=== PATIENT | female | born 1935 | race Asian ===

== ENCOUNTER 2020-12-29 09:14 | Observation (INO) | payer MEDICARE ==
[~2020-12-29] VITALS: Ht 149.9 cm; Wt 56.6 kg
[2020-12-29 09:50] LABS: BASO % 0.5 % (0.0-2.0); EOS # 0.2 (0.0-0.7); EOS % 2.5 % (0-4.0); GRAN # 6.6 (1.4-6.5); GRAN % 76.2 % (42.2-75.2); LYMPH # 1.2 (1.2-3.4); LYMPH % 13.8 % (20.0-51.0); MEAN CELL VOLUME 94 fl (80.0-100.0); MEAN CORPUSCULAR HGB CONC 31 g/dl (33.0-37.0); MEAN PLATELET VOLUME 10.5 fl (7.4-10.4); MONO # 0.6 (0.1-0.6); MONO % 6.7 % (1.7-9.3); PLATELET COUNT 113 K/mm3 (130-400); RED BLOOD COUNT 3.16 M/mm3 (4.10-5.30); REDCELL DISTRIBUTION WIDTH-CV 13.2 % (11.5-14.5)
[2020-12-29 09:55] LABS: HEMATOCRIT 29.8 % (37.0-47.0); HEMOGLOBIN 9.2 g/dl (12.5-16.0); MEAN CORPUSCULAR HEMOGLOBIN 29 pg (27.0-31.0)
[2020-12-29 10:04] LABS: ALBUMIN 4.1 gm/dL (3.5-5.0); BILIRUBIN,TOTAL 0.9 mg/dL (0.0-1.0); CALCIUM 9.3 mg/dL (8.4-10.2); CREATININE, serum 5.99 (0.52-1.25); POTASSIUM 3.7 mmol/L (3.4-5.0); TOTAL PROTEIN 7.7 gm/dL (6.4-8.2)
[2020-12-29 10:15] LABS: C-REACTIVE PROTEIN 1.2 mg/dL (0.0-0.9); MAGNESIUM 2.1 mg/dL (1.6-2.3); PHOSPHOROUS 3.4 mg/dL (2.5-4.5)
[2020-12-29] MEDS ORDERED: LAC-HYDRIN LOT 225GM TP (10:27)
[2020-12-29] MEDS ORDERED: LIPITOR 40MG TA40 MG PO (10:28)
[2020-12-29] MEDS ORDERED: CALPHRON667 MG PO (10:29)
[2020-12-29] MEDS ORDERED: ARICEPT 5MG PO (10:30)
[2020-12-29] MEDS ORDERED: COREG 3.123.125 MG/T PO (10:30)
[2020-12-29] MEDS ORDERED: LEXAPRO 5MG5 MG PO (10:31)
[2020-12-29] MEDS ORDERED: NAMENDA XR PO (10:32)
[2020-12-29] MEDS ORDERED: LEVOXYL0.05 MG PO (10:32)
[2020-12-29] MEDS ORDERED: VENTOLIN0.09 MG IH (10:33)
[2020-12-29 16:00] VITALS: BP 144/62; PULSE 74; TEMP 98.1
--- NOTE | 2020-12-29 16:30 | NUR ---
PATIENT ADMITED INTO ROOM 346 FROM ER WITH CHRONIC RENAL FAILURE. PATIENT MOVED TO THIS AREA FROM [place] 5 DAYS AGO. PATIENT MOVED IN WITH GRAND-DAUGHTER FOR BETTER CARE. 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 NEPHROLOGY IS CONCERNED ABOUT FISTULA ACCESS, PLAN IS TO TRY AND DO DIALYSIS TOMORROW. NOTED CRITICAL BUN & CREATININE UPON ADMIT TO ER. PATIENT REPORTS LAST DIALYSIS WAS 12/27/20 AND IS ANURIC. PATIENT IS ALSO VERY HYPERTENSIVE AND RECEIVED SEVERAL MEDS FOR B/P IN ER. ALL OTHER VSS. RIGHT AC IV TO INT. RENAL DIET ORDERED. HEAD TO TOE ASSESSMENT COMPLETE. GRAND-DAUGHTER AT BEDSIDE. ORIENTED TO ROOM. CALL LIGHT IN REACH.
[2020-12-29 19:35] VITALS: BP 208/55; PULSE 67; TEMP 98.6
--- NOTE | 2020-12-29 21:00 | NUR ---
PATIENT IS CALM IN BED.DUE MEDS GIVEN.PATIENT HAS DIMINSHED URINE.SAFETY MEASURES PUT IN PLACE.DENIES PAIN.NO OTHER NEEDS AT THIS TIME.
[2020-12-29 23:11] VITALS: BP 207/64; PULSE 69; TEMP 98.7
[2020-12-30] VITALS (11 sets, daily range): BP systolic 135–202; BP diastolic 40–66; PULSE 59–61; TEMP 97.6–98.6
--- NOTE | 2020-12-30 05:50 | NUR ---
PATIENT HAD A CALM NIGHT.PATIENT HAD ELEVATED SYSTOLIC BP.DENIES PAIN. SAFETY MEASURES IN PLACE.NO OTHER NEEDS AT THIS TIME.
[2020-12-30 07:01] LABS: BASO % 0.3 % (0.0-2.0); EOS # 0.2 (0.0-0.7); EOS % 2.8 % (0-4.0); GRAN # 5.7 (1.4-6.5); HEMATOCRIT 25.1 % (37.0-47.0); HEMOGLOBIN 7.9 g/dl (12.5-16.0); LYMPH # 1.1 (1.2-3.4); LYMPH % 13.9 % (20.0-51.0); MEAN CELL VOLUME 94 fl (80.0-100.0); MEAN CORPUSCULAR HEMOGLOBIN 29 pg (27.0-31.0); MEAN CORPUSCULAR HGB CONC 32 g/dl (33.0-37.0); MONO # 0.6 (0.1-0.6); MONO % 7.6 % (1.7-9.3); PLATELET COUNT 99 K/mm3 (130-400); RED BLOOD COUNT 2.68 M/mm3 (4.10-5.30); REDCELL DISTRIBUTION WIDTH-CV 13.3 % (11.5-14.5)
[2020-12-30 07:25] LABS: ALBUMIN 3.5 gm/dL (3.5-5.0); CALCIUM 8.7 mg/dL (8.4-10.2); CREATININE, serum 7.29 (0.52-1.25); POTASSIUM 3.9 mmol/L (3.4-5.0)
[2020-12-30 07:53] LABS: PHOSPHOROUS 3.8 mg/dL (2.5-4.5)
--- NOTE | 2020-12-30 10:13 | NUR ---
PATIENT IS ALERT AND ORIENTED X4. PATIENT IS SITTING IN BED WITH SCD'S WAITING FOR BREAKFAST TRAY. PATIENT ONN 1500CC FLUID RESTRICTION. PATIENT HAS RIGHT AC IV AND LEFT ARM FISTULA. LUE RESTRICTED. PATIENT SET TO HAVE DIALYSIS TODAY AND DIETARY CONSULT. HAD ONCOLOGY CONSULT YESTERDAY. PATIENT HAS LUMPS OVER UPPER BODY DUE TO BREAT AND OVARIAN CANCER HISTORY. PATIENT DENIES PAIN OR FURTHER NEEDS AT THIS TIME. HEAD TO TOE ASSESSMENT COMPLETE. CALL LIGHT WITHIN REACH.
--- NOTE | 2020-12-30 10:15 | NUR ---
CORRECTION ON PREVIOUS NOTE: PATIENT DOES NOT HAVE AN OFFICIAL ONCOLOGY CONSULT ORDERED YET. PATIENT IS CURRENTLY SCHEDULED TO FOLLOW UP WITH THE [facility] NEXT WEEK OUTPATIENT. ONCOLOGY CONSULT WAS MENTIONED IN PROGRESS NOTE, NO OFFICIAL INPATIENT CONSULT ORDERED AT THIS TIME.
--- NOTE | 2020-12-30 13:38 | NUR ---
Initial visit; Patient thanked Business Operations Specialist for looking in on her and keeping her in Business Operations Specialist's prayers.
--- NOTE | 2020-12-30 14:30 | NUR ---
PATIENT NOW DOWN IN DIALYSIS
--- NOTE | 2020-12-30 16:25 | NUR ---
recording studio setup worker met with patient to discuss discharge plan. Patient lives in [place] with her granddaughter (Aparna [phone]). Patient reports she is independent on all activities of daily living, but uses a walker and cane to get around. Patient was unable to answer a lot of questions due to Aparna taking care of it. This social media marketing manager called Aparna. Patient is new to the area and has not established a primary care physician, but does see Dr. Snider for dialysis. Granddaughter reports feeling overwhelmed with figuring out her Medicare/ [place] Medicaid in addition to establishing doctors. Medicaid Nurse educated Aparna that Dr. Snider will take over most primary care duties. Patient does have a DPOA-HC established (Aparna). recording studio setup worker asked Aparna to bring a copy of DPOA-HC up to the hospital. recording studio setup worker informed Aparna that PT/OT rec's are home with home health PT/OT. recording studio setup worker will email Medicare.gov agencies to Aparna. Discharge plan it to go home with home health. * Discharge Plan: Home with Home health.*
--- NOTE | 2020-12-30 17:05 | NUR ---
AT BEDSIDE. CONSENT ON CHART
--- NOTE | 2020-12-30 17:06 | NUR ---
PATIENT'S HD TX DC'D AFTER INITIATION DUE TO INCREASED VENOUS SITE PRESSURES ON THE MACHINE & TROUBLESHOOTING UNSUCCESSFUL. 1605 DR[address] WILLSON AWARE & OK TO DC TX TODAY. ORDERED A SHOUNTOGRAM FOR AMY AVG.
[2020-12-30 17:51] LABS: PROTHROMBIN TIME 11.3 SECONDS (9.7-12.8)
--- NOTE | 2020-12-30 19:44 | NUR ---
PATIENT ALERT AND ORIENTED X4, IN BED ON NO APPARENT DISTRESS. HOB ELEVATED. PATIENT DENIES ANY DISCOMFORT AT THIS TIME. GRAZYNA FISTULA SITE WITH BRUISING AREA, WRAPPED WITH BOZENA. CALL LIGHT WITHIN REACH. ENCOURAGE TO CALL FOR WEB CONTENT MANAGER. WILL CONTINUE TO MONITOR.
[2020-12-31] VITALS (10 sets, daily range): BP systolic 100–199; BP diastolic 37–87; PULSE 49–70; TEMP 97.6–98.3
[2020-12-31 07:14] LABS: BASO % 0.3 % (0.0-2.0); EOS # 0.3 (0.0-0.7); GRAN # 4.9 (1.4-6.5); GRAN % 69.2 % (42.2-75.2); LYMPH # 1.3 (1.2-3.4); LYMPH % 17.8 % (20.0-51.0); MEAN CELL VOLUME 96 fl (80.0-100.0); MEAN CORPUSCULAR HGB CONC 31 g/dl (33.0-37.0); MEAN PLATELET VOLUME 11.1 fl (7.4-10.4); MONO # 0.6 (0.1-0.6); MONO % 8.3 % (1.7-9.3); PLATELET COUNT 113 K/mm3 (130-400); RED BLOOD COUNT 2.72 M/mm3 (4.10-5.30); REDCELL DISTRIBUTION WIDTH-CV 13.5 % (11.5-14.5)
[2020-12-31 07:16] LABS: HEMOGLOBIN 8.1 g/dl (12.5-16.0); MEAN CORPUSCULAR HEMOGLOBIN 30 pg (27.0-31.0)
[2020-12-31 07:23] LABS: ALBUMIN 3.7 gm/dL (3.5-5.0); CALCIUM 8.7 mg/dL (8.4-10.2); CREATININE, serum 8.57 (0.52-1.25)
[2020-12-31 07:37] LABS: PHOSPHOROUS 3.6 mg/dL (2.5-4.5)
--- NOTE | 2020-12-31 07:55 | NUR ---
PATIENT TAKEN DOWN FOR FISTULAGRAM.
--- NOTE | 2020-12-31 09:50 | NUR ---
PATIENT JUST RETURNED FROM FISTULAGRAM. PATIENT IS SITTING UP IN BED AND IS ALERT AND ORIENTED BUT DROWSY. PATIENT HAS IV TO THE RIGHT AC AND FISTULA TO THE LEFT UPPER ARM. PATIENT IS BRUISED IN THIS AREA. PATIENT HAS HIGH BP AT THIS TIME, MORNING MEDS GIVEN PER ORDERS UPON RETURNING TO FLOOR. PATIENT SET TO GO TO DIALYSIS TODAY. PATIENT DENIES FURTHER NEEDS AT THIS TIME. HEAD TO TOE ASSESSMENT COMPLETE. CALL LIGHT WITHIN REACH.
--- NOTE | 2020-12-31 12:45 | NUR ---
PATIENT GOING DOWN TO DIALYSIS
--- NOTE | 2020-12-31 13:27 | NUR ---
Patients daughter would like a home health referral sent to [facility]. Called Landy at [facility] and left a message. Faxed paperwork to Landy for referral.
--- NOTE | 2020-12-31 14:46 | NUR ---
tea tree farm worker received call from Landy at [facility] that the patient's current insurance would not cover any out of state home health services. tea tree farm worker contacted the daughter (Aparna) to inform her of the current home health status. Aparna stated that she had just gotten off of the phone with Landy ([facility] and that Landy had set her up with a local Medicare sales representative door to door to get her mother's insurance switched to something that was in network with the [facility]. Aparna states that the meeting is scheduled for 01/01/21. tea tree farm worker asked Aparna to get in touch with her after the meeting for update.
--- NOTE | 2020-12-31 16:18 | NUR ---
PATIENT TOLERATED HD TX WITH 2 L FLUID REMOVAL TODAY & 500 BFR WITH LUE AVG. NEXT PLANNED HD TX ON Wednesday01/02/21 @ 0800.
--- NOTE | 2020-12-31 16:23 | NUR ---
PATIENT IS NOW BACK IN ROOM FROM DIALYSIS
--- NOTE | 2020-12-31 20:30 | NUR ---
Pt. sitting up in chair at this time. Pt. is A&OX3, assessment complete. INT to rt. ac patent. Pt. denies pain or other needs, call light within reach.
[2021-01-01 00:31] VITALS: BP 140/40; PULSE 63; TEMP 97.9
[2021-01-01 04:53] VITALS: BP 179/40; PULSE 61; TEMP 98.1
[2021-01-01 07:52] VITALS: BP 219/50; PULSE 62; TEMP 98.1
--- NOTE | 2021-01-01 09:00 | NUR ---
Patient laying in bed, A&Ox4. VSS, BP elevated. IV old drainage. Fistula LUE CDI. Denies pain and discomfort. Did not want to eat yet, is waiting on the granddaughter to come visit. SCD bilateral legs. No further needs expressed. Call light within reach
[2021-01-01 09:23] VITALS: BP 173/49; PULSE 60
[2021-01-01] MEDS ORDERED: COREG12.5 MG PO (09:27)
[2021-01-01] MEDS ORDERED: COZAAR100 MG PO (09:28)
[2021-01-01] MEDS ORDERED: NORVASC 5MG5 MG/TAB PO (09:29)
--- NOTE | 2021-01-01 12:50 | NUR ---
Discharge paperwork reviewed with the patient and granddaughter. Patient verbalized an understanding to follow doctors orders. Granddaughter assisted with getting the patient dressed. Nursing staff transfered the patient by wheelchair to the vehicle. IV removed, tip intact. Gauze and coban applied. No further needs expressed.
--- NOTE | 2021-01-01 14:03 | NUR ---
cargo station worker discovered patient had been discharged. cargo station worker called Aparna ([facility]) to talk about steps to establish home health per PT/OT recommendations. Aparna verbalized that she noticed an increase in weakness from the patient once home and stated that "no one had been walking her around during her stay". cargo station worker educated Aparna that when PT would try to work with the patient she would be in dialysis. Plan had been for the patient to go home with home health, but have had insurance discrepancies.Aparna has a meeting today at 1400 with a Medicare medical field representative to talk about getting patient's insurance within a [place] network. cargo station worker encouraged Aparna to call Landy at [facility] to update her on what was decided regarding the insurance. Aparna verbalized this understanding. cargo station worker called Landy at [facility] to give an update that the patient had been discharged. cargo station worker let Landy know that she advised Aparna to call and give an update after the meeting. cargo station worker informed Landy that the patient was discharged without a home health order and that she would be working on obtaining one.
[2021-01-01 23:35] LABS: HEPATITIS B SURFACE ANTIBODY 91.4 (()); HEPATITIS B SURFACE ANTIGEN Negative (Negative); HEPATITIS C VIRUS ANTIBODY Negative (Negative)
[2021-01-22] MEDS ORDERED: BENADRYL25 M2 PO (00:55)
[2021-01-22] MEDS ORDERED: IMODIUM 2MG CAPS2 MG PO (00:55)
[2021-01-23] MEDS ORDERED: PHOSLO667 MG PO (13:06)
== END 2021-01-01 12:50 | disposition home or self-care (01) ==
LOC: COL.ER 09:14 → SURG 10:12
PROVIDERS: Family Medicine; ADMIT Internal Medicine Nephrology
DX: T82.858A Stenosis of other vascular prosthetic devices, implants and grafts, initial encounter (principal); E87.70 Fluid overload, unspecified; C56.9 Malignant neoplasm of unspecified ovary; I16.0 Hypertensive urgency; J43.9 Emphysema, unspecified; I51.7 Cardiomegaly; N18.6 End stage renal disease; D63.1 Anemia in chronic kidney disease; C50.919 Malignant neoplasm of unspecified site of unspecified female breast; E11.22 Type 2 diabetes mellitus with diabetic chronic kidney disease; F03.90 Unspecified dementia, unspecified severity, without behavioral disturbance, psychotic disturbance, mood disturbance, and anxiety; Z79.890 Hormone replacement therapy; Z87.891 Personal history of nicotine dependence; Z79.899 Other long term (current) drug therapy; Z99.2 Dependence on renal dialysis; Z20.822 Contact with and (suspected) exposure to COVID-19
CPT/HCPCS: C1725; C1769; C1894; G0378; J1644; J1815; J1940; J2250; J3010; J7030; Q9967

== ENCOUNTER → 2021-02-06 | Outpatient (CLI) | payer MEDICARE, MEDICAID ==
[~2021-02-06] MED LIST: ARICEPT 5MG PO; BENADRYL25 M2 PO; CALPHRON667 MG PO; COREG 3.123.125 MG/T PO; COREG12.5 MG PO; COZAAR100 MG PO; IMODIUM 2MG CAPS2 MG PO; LAC-HYDRIN LOT 225GM TP; LEVOXYL0.05 MG PO; LEXAPRO 5MG5 MG PO; LIPITOR 40MG TA40 MG PO; NAMENDA XR PO; NORVASC 5MG5 MG/TAB PO; PHOSLO667 MG PO; VENTOLIN0.09 MG IH
== END ==
LOC: MC.RAD 10:52
DX: N63.20 Unspecified lump in the left breast, unspecified quadrant (principal); C50.112 Malignant neoplasm of central portion of left female breast

== ENCOUNTER 2021-02-22 04:15 | Emergency (ER) | payer MEDICARE, MEDICAID ==
[~2021-02-22] VITALS: Ht 147.3 cm; Wt 55.0 kg
[2021-02-22 04:19] VITALS: TEMP 98.6
[2021-02-22 04:48] LABS: BASO % 0.4 % (0.0-2.0); EOS # 0.2 (0.0-0.7); EOS % 1.9 % (0-4.0); GRAN # 7.2 (1.4-6.5); GRAN % 75.5 % (42.2-75.2); HEMOGLOBIN 10.8 g/dl (12.5-16.0); LYMPH # 1.2 (1.2-3.4); LYMPH % 12.4 % (20.0-51.0); MEAN CELL VOLUME 97 fl (80.0-100.0); MEAN CORPUSCULAR HEMOGLOBIN 31 pg (27.0-31.0); MEAN CORPUSCULAR HGB CONC 32 g/dl (33.0-37.0); MEAN PLATELET VOLUME 10.7 fl (7.4-10.4); MONO # 0.9 (0.1-0.6); MONO % 9.5 % (1.7-9.3); PLATELET COUNT 137 K/mm3 (130-400); RED BLOOD COUNT 3.44 M/mm3 (4.10-5.30); REDCELL DISTRIBUTION WIDTH-CV 14.8 % (11.5-14.5)
[2021-02-22 04:49] LABS: HEMATOCRIT 33.4 % (37.0-47.0)
[2021-02-22 04:58] LABS: INR 1.1 (0.8-3.0); PROTHROMBIN TIME 11.7 SECONDS (9.7-12.8)
[2021-02-22 05:01] LABS: PARTIAL THROMBOPLASTIN TIME 28.7 SECONDS (26.0-37.0)
[2021-02-22 05:33] LABS: ALBUMIN 3.8 gm/dL (3.4-4.8); BILIRUBIN,TOTAL 0.9 mg/dL (0.2-1.2); CALCIUM 9.5 mg/dL (8.4-10.2); CREATININE, serum 6.86 mg/dL (0.57-1.11); POTASSIUM 4.8 mmol/L (3.5-4.5); TOTAL PROTEIN 7.6 gm/dL (6.2-8.1)
[2021-02-22 05:42] LABS: TROPONIN-I 0.045 ng/mL (0.00-0.033)
[2021-02-22 06:40] VITALS: BP 200/95; PULSE 60
== END 2021-02-22 06:40 | disposition home or self-care (01) ==
LOC: COL.ER 04:15
PROVIDERS: Student in an Organized Health Care Education/Training Program
DX: G45.9 Transient cerebral ischemic attack, unspecified (principal); I12.0 Hypertensive chronic kidney disease with stage 5 chronic kidney disease or end stage renal disease; N18.6 End stage renal disease; I10 Essential (primary) hypertension; F03.90 Unspecified dementia, unspecified severity, without behavioral disturbance, psychotic disturbance, mood disturbance, and anxiety; Z99.2 Dependence on renal dialysis; Z79.899 Other long term (current) drug therapy

== ENCOUNTER 2021-03-21 23:13 | Emergency (ER) | payer MEDICARE, MEDICAID ==
[~2021-03-21] VITALS: Ht 142.2 cm; Wt 54.5 kg
[2021-03-21 23:59] LABS: BASO # 0.1 K/mm3 (0.0-0.2); BASO % 0.8 % (0.0-2.0); EOS # 0.2 K/mm3 (0.0-0.7); EOS % 2.8 % (0-4.0); GRAN # 4.8 K/mm3 (1.4-6.5); HEMATOCRIT 37.8 % (37.0-47.0); HEMOGLOBIN 12.3 g/dl (12.5-16.0); LYMPH # 1.2 K/mm3 (1.2-3.4); LYMPH % 17.3 % (20.0-51.0); MEAN CELL VOLUME 94 fl (80.0-100.0); MEAN CORPUSCULAR HEMOGLOBIN 31 pg (27.0-31.0); MEAN CORPUSCULAR HGB CONC 33 g/dl (33.0-37.0); MEAN PLATELET VOLUME 10.6 fl (7.4-10.4); MONO # 0.8 K/mm3 (0.1-0.6); MONO % 11.8 % (1.7-9.3); PLATELET COUNT 104 K/mm3 (130-400); RED BLOOD COUNT 4.02 M/mm3 (4.10-5.30); REDCELL DISTRIBUTION WIDTH-CV 14.6 % (11.5-14.5)
[2021-03-22 01:01] LABS: ALBUMIN 4.2 gm/dL (3.4-4.8); BILIRUBIN,TOTAL 1.2 mg/dL (0.2-1.2); CREATININE, serum 2.99 mg/dL (0.57-1.11); POTASSIUM 4.1 mmol/L (3.5-4.5); TOTAL PROTEIN 7.7 gm/dL (6.2-8.1)
[2021-03-22 01:14] LABS: TROPONIN-I 0.035 ng/mL (0.00-0.033)
[2021-03-22 03:30] VITALS: BP 176/86; PULSE 57; TEMP 98.5
== END 2021-03-22 03:30 | disposition home or self-care (01) ==
LOC: COL.ER 23:13
PROVIDERS: Personal Emergency Response Attendant
DX: I12.0 Hypertensive chronic kidney disease with stage 5 chronic kidney disease or end stage renal disease (principal); E11.22 Type 2 diabetes mellitus with diabetic chronic kidney disease; N18.6 End stage renal disease; R79.89 Other specified abnormal findings of blood chemistry; J43.9 Emphysema, unspecified; Z99.2 Dependence on renal dialysis; Z79.899 Other long term (current) drug therapy
CPT/HCPCS: J0360; J1940

== ENCOUNTER 2021-05-08 15:00 | Outpatient (RCR) | payer MEDICARE, MEDICAID | END 2021-05-12 | LOC: WSPT | DX: R68.89 Other general symptoms and signs (principal) ==

== ENCOUNTER 2021-05-22 14:15 | Outpatient (RCR) | payer MEDICARE, MEDICAID | END 2021-05-23 | disposition still patient (30) | LOC: WSPT | DX: Z72.3 Lack of physical exercise (principal) ==

== ENCOUNTER 2021-05-27 13:51 | Outpatient (RCR) | payer MEDICARE, MEDICAID | END 2021-06-23 | disposition home or self-care (01) | LOC: WSPT | DX: Z72.3 Lack of physical exercise (principal) ==

== ENCOUNTER → 2021-07-10 | Outpatient (CLI) | payer MEDICARE, MEDICAID | LOC: ZCOL.LAB 16:21 | DX: S31.109D Unspecified open wound of abdominal wall, unspecified quadrant without penetration into peritoneal cavity, subsequent encounter (principal); L89.309 Pressure ulcer of unspecified buttock, unspecified stage; E46 Unspecified protein-calorie malnutrition; A04.72 Enterocolitis due to Clostridium difficile, not specified as recurrent; N18.6 End stage renal disease; Z99.2 Dependence on renal dialysis ==

== ENCOUNTER → 2021-10-28 | Outpatient (CLI) | payer MEDICARE, MEDICAID | LOC: COL.VAS 09:29 | DX: M79.605 Pain in left leg (principal) ==

== ENCOUNTER 2021-11-18 10:31 | Day surgery (SDC) | payer MEDICARE, MEDICAID ==
[2021-11-18] VITALS (9 sets, daily range): BP systolic 97–159; BP diastolic 27–88; PULSE 68–88; TEMP 97.6–98.3
[~2021-11-18] VITALS: Ht 147.3 cm; Wt 42.0 kg
[2021-11-18] MEDS ORDERED: ARIMIDEX1 MG PO (11:39)
[2021-11-18 11:41] LABS: BASO % 0.6 % (0.0-2.0); EOS # 0.1 K/mm3 (0.0-0.7); GRAN # 4.6 K/mm3 (1.4-6.5); GRAN % 67.5 % (42.2-75.2); HEMOGLOBIN 10.1 g/dl (12.5-16.0); LYMPH # 1.5 K/mm3 (1.2-3.4); MEAN CELL VOLUME 96 fl (80.0-100.0); MEAN CORPUSCULAR HEMOGLOBIN 29 pg (27-31); MEAN CORPUSCULAR HGB CONC 30 g/dl (33.0-37.0); MEAN PLATELET VOLUME 9.3 fl (7.4-10.4); MONO # 0.6 K/mm3 (0.1-0.6); MONO % 8.5 % (1.7-9.3); PLATELET COUNT 204 K/mm3 (130-400); REDCELL DISTRIBUTION WIDTH-CV 15.7 % (11.5-14.5)
[2021-11-18] MEDS ORDERED: RENA-VITE1 TAB PO (11:42)
[2021-11-18 11:43] LABS: HEMATOCRIT 33.7 % (37.0-47.0)
[2021-11-18] MEDS ORDERED: MASON NATURAL2000 IU PO (11:43)
[2021-11-18 11:55] LABS: ALBUMIN 3.1 gm/dL (3.4-4.8); BILIRUBIN,TOTAL 0.7 mg/dL (0.2-1.2); CALCIUM 9.3 mg/dL (8.4-10.2); CREATININE, serum 2.93 mg/dL (0.57-1.11); POTASSIUM 3.8 mmol/L (3.5-4.5); TOTAL PROTEIN 7.3 gm/dL (6.2-8.1)
[2021-11-18] MEDS ORDERED: NORCO 325 MG-51 TAB PO (15:02)
--- NOTE | 2021-11-18 19:28 | NUR ---
RECEIVED CHANGE OF SHIFT REPORT FROM DAY SHIFT RN.
--- NOTE | 2021-11-18 19:57 | NUR ---
PATIENT DENIES PAIN/NAUSEA/CHEST PAIN/SOA AT THIS TIME. INCONTINENT OF SMALL AMOUNT LOOSE BROWN STOOL, INCONTINENT CARE GIVEN. OBSERVED HEALING PRESSURE SORE AREAS TO ALESHIA BUTTOCKS AND COCCYX AREA, SKIN PINK WITH NO OPEN AREAS OBSERVED. ALESHIA HEELS CLEAR/NO REDNESS. IV SITE TO RIJTL IN PLACE W/IV FLUIDS INFUSING WITH NO PROBLEMS.
--- NOTE | 2021-11-18 21:42 | NUR ---
DRSG TO RIJTL SITE CHANGED AFTER PCT OBSERVED SMALL AMOUNT DRIED DARK RED DRAINAGE COMING FROM UNDERNEATH R NECK RIJ SITE DRSG. AREA CLEANED WITH ETOH AND PLACE NEW TEGADERM DRSG TO [facility], WITH NO COMPLAINTS FROM PATIENT DURING DRSG CHANGE. PATIENT CONTINUES TO DENY ANY NEEDS OR COMPLAINTS AT THIS TIME.
--- NOTE | 2021-11-18 22:00 | NUR ---
DAY SHIFT RN LMOM FOR DR WILLSON TO CALL REGARDING UPDATE ON PATIENT'S MED REC AND BP READINGS. DR WILLSON RETURNED CALL, INFORMED OF CURRENT BP'S AND THAT MED REC IS COMPLETE AND INFORMED OF PATIENT'S DIALYSIS MWF SCHEDULE WITH NO DISCHARGE ORDERS IN PLACE CURRENTLY.
[2021-11-19 00:28] VITALS: BP 145/39; PULSE 83; TEMP 98.3
--- NOTE | 2021-11-19 00:29 | NUR ---
PLACED AIR MATTRESS OVERLAY ON BED WITH PATIENT AGREEMENT AT THIS TIME. DENIES DISCOMFORT.
[2021-11-19 03:52] VITALS: BP 141/34; PULSE 74; TEMP 98.3
--- NOTE | 2021-11-19 07:11 | NUR ---
CHANGE OF SHIFT REPORT GIVEN TO DAY SHIFT RNFELIPE.
[2021-11-19 07:39] VITALS: BP 182/60; PULSE 75; TEMP 98.5
--- NOTE | 2021-11-19 10:13 | NUR ---
Patient prescribed hazardous medication: arimidex. Staff to follow ongoing chemo precautions when handling patient's stool. Last dose listed as 11/18 and precautions to be in place for 10 days following last administration. Notified staff and placed sign outside patient room.
[2021-11-19 12:21] VITALS: BP 182/43
--- NOTE | 2021-11-19 12:37 | NUR ---
PATIENT ALERT AND ORIENTED TO SELF. RIGHT IJ FLUSHES WELL WITH GOOD BLOOD RETURN. ABDOMINAL SITE WITH MINIMAL DRAINAGE CHANGED, GAUZE/MEDIPOR TAPE APPLIED. HEALING COCCYX AND BILATERAL BUTTOCKS WOUNDS, BARRIER CREAM APPLIED. PATIENT REPOSITIONED. ASSESSMENT PERFORMED. AM MEDS ADMINISTERED. PATIENT DENIES PAIN AND HAS NO SIGNS OF PAIN. CALL LIGHT WITHIN REACH.
--- NOTE | 2021-11-19 12:43 | NUR ---
Notified by Jessica at [facility] that transportation can pick the patient up at 1300. Care team updated on pickup time. Patient's clinical information and discharge orders faxed to Jessica.
--- NOTE | 2021-11-19 13:48 | NUR ---
Several visit attempts; Dog Breeder left "Prayer of Hope" Card and offered God's blessings from [facility]. Patient sleeping.
--- NOTE | 2021-11-19 14:57 | NUR ---
REPORT CALLED TO KYLEIGH FROM [facility].
== END 2021-11-19 13:45 ==
LOC: SDCO 10:31 → SURG 19:34 → SDCO 11-19 13:45
PROVIDERS: Surgery
DX: T81.31XA Disruption of external operation (surgical) wound, not elsewhere classified, initial encounter (principal); Z20.822 Contact with and (suspected) exposure to COVID-19
CPT/HCPCS: OP; C1751; J0360; J0690; J1100; J2704; J3010; J7120

== ENCOUNTER 2022-01-09 23:01 | Emergency (ER) | payer MEDICARE, MEDICAID ==
[~2022-01-09] VITALS: Ht 147.3 cm; Wt 45.5 kg
[~2022-01-09 23:01] MED LIST changes: +ARIMIDEX1 MG PO; +MASON NATURAL2000 IU PO; +NORCO 325 MG-51 TAB PO; +RENA-VITE1 TAB PO
[2022-01-09 23:04] VITALS: TEMP 98
[2022-01-10 01:39] VITALS: BP 200/68; PULSE 64
== END 2022-01-10 01:39 | disposition home or self-care (01) ==
LOC: COL.ER 23:01
DX: S09.90XA Unspecified injury of head, initial encounter (principal); S01.111A Laceration without foreign body of right eyelid and periocular area, initial encounter; Z28.311 Partially vaccinated for COVID-19; W05.0XXA Fall from non-moving wheelchair, initial encounter

== ENCOUNTER 2022-01-26 18:40 | Emergency (ER) | payer MEDICARE, MEDICAID ==
[~2022-01-26] VITALS: Ht 152.4 cm; Wt 50.0 kg
[2022-01-26 18:45] VITALS: TEMP 98
[2022-01-26 21:35] VITALS: BP 203/69; PULSE 98
== END 2022-01-26 21:46 | disposition home or self-care (01) ==
LOC: COL.ER 18:40
DX: S01.01XA Laceration without foreign body of scalp, initial encounter (principal); S91.011A Laceration without foreign body, right ankle, initial encounter; I12.9 Hypertensive chronic kidney disease with stage 1 through stage 4 chronic kidney disease, or unspecified chronic kidney disease; E11.22 Type 2 diabetes mellitus with diabetic chronic kidney disease; N18.9 Chronic kidney disease, unspecified; Z99.2 Dependence on renal dialysis; V00.811A Fall from moving wheelchair (powered), initial encounter

== ENCOUNTER → 2022-10-01 | Outpatient (REF) | payer MEDICARE, MEDICAID | LOC: ZCOL.LAB 12:18 | DX: K62.5 Hemorrhage of anus and rectum (principal) ==